=== PATIENT | female | born 1980 | race Caucasian/White ===

== ENCOUNTER → 2016-11-03 | Outpatient (CLI) | payer BC ==
--- NOTE | 2016-11-03 14:39 | ECHOF ---
Referral Reason:I44.0 First degree Atrial Ventricular Block MEASUREMENTS -------- HEIGHT: 167.6 cm WEIGHT: 59.0 kg BP: 102/57 IVSd: 1.1 cm (0.6 - 1.1) LVIDd: 3.7 cm (3.9 - 5.3) LVPWd: 1.1 cm (0.6 - 1.1) IVSs: 1.4 cm LVIDs: 2.9 cm LVPWs: 1.2 cm LAESV Index (A-L): 21.17 ml/m Ao Diam: 2.6 cm (2.0 - 3.7) AV Cusp: 1.9 cm (1.5 - 2.6) LA Diam: 3.3 cm (2.7 - 3.8) MV EXCURSION: 10.629 mm (> 18.000) MV EF SLOPE: 66 mm/s (70 - 150) EPSS: 0.3 cm MV E Scout: 1.00 m/s MV DecT: 199 ms MV A Scout: 0.82 m/s MV E/A Ratio: 1.21 RAP: 5.00 mmHg RVSP: 11.51 mmHg FINDINGS -------- Sinus rhythm. This was a technically good study. Left ventricular wall thickness is normal. Overall left ventricular systolic function is low-normal with, an EF between 50 - 55 %. The right ventricle is normal in size and function. The left atrium is normal in size. The right atrium is normal in size. The aortic valve is trileaflet, and appears structurally normal. No aortic stenosis or regurgitation. The mitral valve leaflets are mildly thickened. There is trace mitral regurgitation. Trace tricuspid regurgitation present. The right ventricular systolic pressure, as measured by Doppler, is 11.51mmHg. Pulmonic valve appears structurally normal. The aortic root size is normal. The pericardium is normal. CONCLUSIONS -------- 1. Sinus rhythm. 2. There is trace mitral regurgitation. 3. Trace tricuspid regurgitation present. 4. The right ventricular systolic pressure, as measured by Doppler, is 11.51mmHg. 5. Pulmonic valve appears structurally normal. 6. The aortic root size is normal. 7. The pericardium is normal. 8. This was a technically good study. 9. Left ventricular wall thickness is normal. 10. Overall left ventricular systolic function is low-normal with, an EF between 50 - 55 %. 11. The right ventricle is normal in size and function. 12. The left atrium is normal in size. 13. The right atrium is normal in size. 14. The aortic valve is trileaflet, and appears structurally normal. No aortic stenosis or regurgitation. 15. The mitral valve leaflets are mildly thickened. CAUL PULLER: Marylou Hall RDCS
== END | disposition home or self-care (01) ==
LOC: RADECHMAIN 11:26
PROVIDERS: ATTEND Family Medicine
DX: I05.9 Rheumatic mitral valve disease, unspecified (principal); I44.0 Atrioventricular block, first degree
CPT/HCPCS: 93306

== ENCOUNTER → 2018-05-20 | Outpatient (CLI) | payer BC ==
--- NOTE | 2018-05-21 09:15 | USB ---
Reason for exam: clinical finding. History: Family history of breast cancer in paternal grandmother at age 60. Indicated problem(s): lump or thickening in the right breast. Physical Findings: Nurse Summary: Patient complains of right breast dimpling with lump at 10 o'clock (nurse mj). US Breast RT Right complete breast ultrasound includes all four quadrants, the retroareolar region and axilla. Finding demonstrates mildly prominent duct. These results were verbally communicated with the patient and result sheet given to the patient on 05/20/18. ASSESSMENT: Incomplete: need additional imaging evaluation, BI-RAD 0 RECOMMENDATION: Special view mammogram of both breasts. Manage patient on a clinical basis.
--- NOTE | 2018-05-21 10:23 | MM ---
Reason for exam: clinical finding. History: Family history of breast cancer in paternal grandmother at age 60. MG 3D Diag Mammo W/Cad LEONARDO Bilateral CC and MLO view(s) were taken. The breast tissue is heterogeneously dense. This may lower the sensitivity of mammography. There is no discrete abnormality including area of concern. These results were verbally communicated with the patient and result sheet given to the patient on 05/20/18. ASSESSMENT: Benign, BI-RAD 2 RECOMMENDATION: Routine screening mammogram of both breasts in 1 year.
== END | disposition home or self-care (01) ==
LOC: RADUSWWP 14:33
PROVIDERS: ATTEND Family Medicine
DX: R92.8 Other abnormal and inconclusive findings on diagnostic imaging of breast (principal)
CPT/HCPCS: 77062; 77066

== ENCOUNTER → 2018-06-11 | Outpatient (CLI) | payer BC ==
[2018-06-11 11:53] VITALS: BP 116/73; PULSE 74; RESP 16; TEMP 96.5; BMI 23.3
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
== END ==
LOC: WWCWWP 11:43
PROVIDERS: ATTEND Surgery
DX: Z53.9 Procedure and treatment not carried out, unspecified reason (principal)

== ENCOUNTER → 2020-05-14 | Outpatient (CLI) | payer BC ==
--- NOTE | 2020-05-15 05:43 | CT ---
EXAMINATION TYPE: CT brain wo/w con DATE OF EXAM: 05/14/2020 COMPARISON: None HISTORY: Migraines. Family history of basilar artery aneurysm. CT DLP: 2030.2 mGycm Automated exposure control for dose reduction was used. CONTRAST: Performed without and with IV Contrast, patient injected with 100 mL of Isovue M300. Exam performed without and with IV contrast. Ventricles have normal size. There is no mass effect nor midline shift. There is no sign of intracran ial hemorrhage. There is no evidence of cerebral edema. The calvarium is intact. Skull base is intact . There is normal aeration of the mastoid sinuses. The contrast images show no pathologic enhancement. There is normal enhancement of the venous sinuses . IMPRESSION: Negative CT scan of the brain.
== END | disposition home or self-care (01) ==
LOC: RADCTMAIN 05-09 15:35
PROVIDERS: ATTEND Family Medicine
DX: G43.909 Migraine, unspecified, not intractable, without status migrainosus (principal)
CPT/HCPCS: 70470; Q9967

== ENCOUNTER → 2021-04-19 | Outpatient (CLI) | payer BC ==
--- NOTE | 2021-04-19 15:45 | XR ---
EXAMINATION TYPE: XR shoulder complete LT, 3 views DATE OF EXAM: 04/19/2021 Comparison: None Clinical History: 40-year-old female M06.211 Rheumatoid bursitis, left shoulder Findings: AC joint appears intact. Subacromial space is preserved. No tendinous or bursal calcifications. No ac chicken ranch fracture, subluxation, or dislocation seen. Visualized left hemithorax is clear. Impression: Note acute osseous abnormality seen.
--- NOTE | 2021-04-22 07:47 | MM ---
Reason for exam: additional evaluation requested from prior study. Last mammogram was performed 2 years and 11 months ago. History: Patient history of other cancer. Family history of breast cancer in paternal grandmother at age 60. Physical Findings: Nurse did not find any significant physical abnormalities on exam. MG Diagnostic Mammo w CAD LEONARDO Bilateral CC and MLO view(s) were taken. LM and spot compression CC view(s) were taken of the right breast. Prior study comparison: May 20, 2018, bilateral MG 3d diag mammo w/cad LEONARDO. There are scattered fibroglandular densities. Focal asymmetry right post CC, disperses on compression. These results were verbally communicated with the patient and result sheet given to the patient on 04/19/21. ASSESSMENT: Probably benign, BI-RAD 3 RECOMMENDATION: Follow-up diagnostic mammogram of the right breast in 6 months.
== END | disposition home or self-care (01) ==
LOC: RADMAMWWP 13:46
PROVIDERS: ATTEND Family Medicine
DX: N64.89 Other specified disorders of breast (principal); R93.6 Abnormal findings on diagnostic imaging of limbs; Z80.3 Family history of malignant neoplasm of breast
CPT/HCPCS: 77066

== ENCOUNTER → 2022-07-03 | Outpatient (CLI) | payer BC ==
--- NOTE | 2022-07-03 15:21 | MM ---
Reason for Exam: Additional evaluation requested from prior study. Last mammogram was performed 1 year(s) and 2 month(s) ago. Patient History: Menarche at age 10. First Full-Term at age 13. Other cancer. Paternal grandmother had breast cancer, age 60. Risk Values: Olga 5 year model risk: 0.5%. NCI Lifetime model risk: 7.1%. Tissue Density: The breast tissue is heterogeneously dense. This may lower the sensitivity of mammography. Findings: Analyzed By CAD. The central area of asymmetric density previously seen on the CC view has not persisted from the patient's 2020 exam. The patient did not return for her additional views at that time. No significant change from prior exams. The patient reports a palpable area on the right. Overall Assessment: Incomplete: need additional imaging evaluation, BI-RAD 0 Management: Diagnostic Breast Ultrasound of the right breast. Targeted to the patient's palpable site. Electronically signed and approved by: Digna Perez M.D. Radiologist
--- NOTE | 2022-07-03 15:58 | USB ---
Reason for Exam: Clinical finding. Patient History: Menarche at age 10. First Full-Term at age 13. Other cancer. Paternal grandmother had breast cancer, age 60. Risk Values: Olga 5 year model risk: 0.5%. NCI Lifetime model risk: 7.1%. Prior Study Comparison: 05/20/2018 Bilateral Diagnostic Mammogram, [facility]. 04/19/2021 Bilateral Diagnostic Mammogram, [facility]. Findings: The area of palpable concern of the right breast, the axilla of the right breast and the retroareolar of the right breast were scanned. The 11 to 12:00 position was scanned corresponding to the patient's palpable site. Additional scanning of the subareolar regions and axilla. At the 12:00 palpable site, focal dense tissue is noted. No solid or cystic lesion or axillary lymphadenopathy. Overall Assessment: Benign, BI-RAD 2 Management: Screening Mammogram of both breasts in 1 year. 1. Patient should continue monthly self breast exams. 2. A clinical breast exam by your physician is recommended on an annual basis. 3. This exam should not preclude additional follow-up of suspicious palpable abnormalities. Electronically signed and approved by: Digna Perez M.D. Radiologist
== END | disposition home or self-care (01) ==
LOC: RADMAMWWP 14:46
PROVIDERS: ATTEND Family Medicine
DX: R92.8 Other abnormal and inconclusive findings on diagnostic imaging of breast (principal); Z80.3 Family history of malignant neoplasm of breast
CPT/HCPCS: 77062; 77066

== ENCOUNTER → 2022-10-30 | Outpatient (CLI) | payer BC ==
--- NOTE | 2022-10-30 10:49 | US ---
EXAMINATION TYPE: US renal artery duplex complet DATE OF EXAM: 10/30/2022 COMPARISON: NONE CLINICAL INDICATION: Female, 41 years old with history of Q27.1 CONGENITAL RENAL ARTERY STENOSIS; FMD family hx of renal artery stenosis. HTN MEASUREMENTS: RENAL SIZE: Rt Kidney: 10.2 x 4.9 x 3.9 cm Lt Kidney: 10 x 5.8 x 5.0 cm RESISTANCE INDEX Right: 0.5 Left: 0.5 RA/AO RATIO (< 3.5 ) Right: 1.4 Left: 1.1 RA VELOCITY ( < 180 cm/s) Right: 193 Left: 153 IMPRESSION: No evidence for renal artery stenosis.
== END | disposition home or self-care (01) ==
LOC: RADUSWWP 08:58
PROVIDERS: ATTEND Surgery
DX: Q27.1 Congenital renal artery stenosis (principal)
CPT/HCPCS: 93975